=== PATIENT | male | born 1990 | race Caucasian/White ===

== ENCOUNTER 2017-08-13 04:33 | Emergency (ER) | payer OTHER ==
[~2017-08-13] VITALS: Ht 180.3 cm; Wt 113.4 kg
[2017-08-13] MEDS ORDERED: ZYRTEC10 M5 PO (04:45)
[2017-08-13 06:38] VITALS: BP 125/84
== END 2017-08-13 06:39 | disposition home or self-care (01) ==
LOC: ER 04:33
DX: R51 Headache (principal); R42 Dizziness and giddiness; H53.8 Other visual disturbances; R11.0 Nausea; Z88.8 Allergy status to other drugs, medicaments and biological substances